=== PATIENT | female | born 1980 | race Caucasian/White ===

== ENCOUNTER 2020-10-26 19:00 | Emergency (ER) | payer MEDICAID ==
[~2020-10-26] VITALS: Ht 149.9 cm; Wt 80.0 kg
[2020-10-26] MEDS ORDERED: ONDANSETRON 4MG ODT PO STA (20:09)
[2020-10-26] MEDS ORDERED: ACETAMINOPHEN 325MG TABLET PO STA (20:09)
[2020-10-26 20:59] LABS: BASOPHILS % 0.2 % (0.0-2.0); EOSINOPHILS % 0.1 % (0.0-5.0); HEMATOCRIT. 37.5 % (36.0-48.0); HEMOGLOBIN. 12.5 g/dL (12.0-16.0); LYMPHOCYTES % 9.6 % (20.0-50.0); MEAN CORPUSCULAR VOLUME 77.7 fL (81.0-99.0); MEAN PLATELET VOLUME 8.5 fl (7.4-10.4); MONOCYTES % 3.8 % (2.0-8.0); NEUTROPHILS % 86.3 % (40.0-76.0); PLATELET 245 x1000/uL (130-400); RED BLOOD CELL COUNT 4.83 mill/uL (4.2-5.4); RED CELL DISTRIBUTION WIDTH 16.8 % (11.6-14.6)
[2020-10-26 21:05] LABS: CHLORIDE 106 mEq/L (98-107)
[2020-10-26 21:06] LABS: HCG SCREEN NEGATIVE
[2020-10-26] MEDS ORDERED: ONDA4TAB11 PO (21:18)
[2020-10-26 21:44] VITALS: BP 110/64
== END 2020-10-26 21:46 | disposition home or self-care (01) ==
LOC: ER 19:00
DX: R10.30 Lower abdominal pain, unspecified (principal); R19.7 Diarrhea, unspecified
CPT/HCPCS: 36415; 80053; 83690; 84703; 85025; 99283; Q0162

== ENCOUNTER 2022-11-24 23:43 | Emergency (ER) | payer MEDICAID, OTHER ==
[~2022-11-24] VITALS: Ht 170.2 cm; Wt 73.0 kg
[~2022-11-24 23:43] MED LIST: ONDA4TAB11 PO
[2022-11-24 23:54] VITALS: BP 147/87; PULSE 84; RESP 16; TEMP 98.2; O2SAT 100
[2022-11-25 01:12] LABS: BASOPHILS % 0.3 % (0.0-2.0); EOSINOPHILS % 1.9 % (0.0-5.0); HEMATOCRIT. 33.6 % (36.0-48.0); HEMOGLOBIN. 11.1 g/dL (12.0-16.0); LYMPHOCYTES % 18.1 % (20.0-50.0); MEAN CORPUSCULAR HEMOGLOBIN 24.7 pg (28.0-32.0); MEAN CORPUSCULAR VOLUME 74.8 fL (81.0-99.0); MEAN PLATELET VOLUME 8.4 fl (7.4-10.4); MONOCYTES % 9.6 % (2.0-8.0); NEUTROPHILS % 70.1 % (40.0-76.0); PLATELET 271 x1000/uL (130-400); RED BLOOD CELL COUNT 4.49 mill/uL (4.2-5.4); RED CELL DISTRIBUTION WIDTH 16.1 % (11.6-14.6)
[2022-11-25 01:18] LABS: CHLORIDE 107 mEq/L (98-107)
== END 2022-11-25 04:30 | disposition left against medical advice (07) ==
LOC: ER 23:45
DX: Z53.21 Procedure and treatment not carried out due to patient leaving prior to being seen by health care provider (principal)
CPT/HCPCS: 36415; 80053; 85025; 99281

== ENCOUNTER 2023-02-18 09:47 | Emergency (ER) | payer OTHER ==
[~2023-02-18] VITALS: Ht 152.4 cm; Wt 75.0 kg
[2023-02-18 10:10] VITALS: O2SAT 98
[2023-02-18] MEDS: ACETAMINOPHEN 325MG TABLET PO ONE (12:45)
[2023-02-18 15:32] VITALS: BP 127/84; PULSE 84; RESP 19; TEMP 98.6
== END 2023-02-18 15:33 | disposition home or self-care (01) ==
LOC: ER 09:47
DX: S80.01XA Contusion of right knee, initial encounter (principal); S40.011A Contusion of right shoulder, initial encounter; W18.30XA Fall on same level, unspecified, initial encounter; Y93.89 Activity, other specified; Y92.89 Other specified places as the place of occurrence of the external cause; Y99.8 Other external cause status
CPT/HCPCS: 73030; 73562; 81025; 99284